=== PATIENT | male | born 1970 | race Caucasian/White ===

== ENCOUNTER 2019-03-08 03:59 | Emergency (ER) | payer MEDICAID ==
[~2019-03-08] VITALS: Ht 182.9 cm; Wt 83.1 kg
[2019-03-08 07:12] VITALS: BP 127/84
== END 2019-03-08 07:28 | disposition home or self-care (01) ==
LOC: ED 05:25
DX: K21.0 Gastro-esophageal reflux disease with esophagitis (principal); K52.9 Noninfective gastroenteritis and colitis, unspecified; K29.20 Alcoholic gastritis without bleeding; F10.10 Alcohol abuse, uncomplicated; I48.91 Unspecified atrial fibrillation; F17.210 Nicotine dependence, cigarettes, uncomplicated; Z90.49 Acquired absence of other specified parts of digestive tract
CPT/HCPCS: 36415; 74177; 80053; 81003; 83690; 85025; 96374; 96375; 99284; J2405; J2550; J3490; Q9967